=== PATIENT | male | born 1955 | race African-American/Black ===

== ENCOUNTER 2020-10-05 13:29 | Emergency (ER) | payer SELFPAY ==
[~2020-10-05] VITALS: Ht 177.8 cm; Wt 82.0 kg
[2020-10-05 13:35] VITALS: BP 142/90
== END 2020-10-05 13:47 | disposition left against medical advice (07) ==
LOC: ER 13:29
DX: R56.9 Unspecified convulsions (principal); Z53.21 Procedure and treatment not carried out due to patient leaving prior to being seen by health care provider